=== PATIENT | male | born 1970 | race Caucasian/White ===

== ENCOUNTER 2018-02-01 19:52 | Emergency (ER) | payer SELFPAY ==
[2018-02-01] MEDS ORDERED: Ketorolac INJ* 60 MG/2 ML VIAL IM ONE (21:03)
[2018-02-01] MEDS ORDERED: oxyCODONE/Acetamin 5/325 MG* TAB PO ONE (21:03)
[2018-02-01] MEDS ORDERED: Dexamethasone IV* 4 MG/ML 1 ML (4 MG) IV SLOW PU ONE (21:03)
[2018-02-01] MEDS ORDERED: Dexamethasone IV* 4 MG/ML 1 ML (4 MG) IM ONE (21:07)
--- NOTE | 2018-02-01 21:11 | ED ---
Lower Extremity - HPI Summary HPI Summary: A 47 y/o male presents to ED c/o severe pain from his left glute radiating down his left leg to his ankle/foot. The pain is reaching 10/10 in severity. As per triage, "Pt c/o LLE pain for approximately 2 months. States pain starts at the top of his left buttocks and radiates to his LLE. States he's been seeing his PCP and has MRI scheduled for tomorrow. Pt has been taking Flexiril with minimal to no effects". According to the patient, he has been exhibiting this lower extremity pain for the past 2 months, however, it has been getting worse and worse. Patient denies any heavy lifting, recent trauma, expect he did tear his muscle of his glute (left) when he was hanging by a tree by his legs. When he came down, he hurt himself. The patient has a scheduled MRI of the area tomorrow, however the pain is unbearable to the point where he cannot sit or lay down. He has to stand up, otherwise he experiencing severe pain, "it hurts like hell". The patient has been seen by an MD for his symptoms and was put on several medications including muscle relaxers (did not help), pain medications and anti-inflammatorily (helped a lot). He stated that when he was given the medications, he felt like "a million bucks" and his pain was subsided, however, he could not sleep. During the process of taking him off the medications, his pain gradually came back, getting more severe by the day. He denies any urinary or bowel dysfunction. PMHx of hand surgery. SHx of no smoking, occasional ETOH, no recreational drugs. Patient just took a muscle relaxer. - History of Current Complaint Chief Complaint: EDExtremityLower Stated Complaint: SCIATICA PAIN LEFT SIDE Time Seen by Provider: 02/01/18 20:56 Hx Obtained From: Patient, Family/Rust Proofer - Mechanism Of Injury: Fall From Height Of: - Tree (previous) Onset of Pain: Post Accident Onset/Duration: Weeks Severity Initially: Severe Severity Currently: Severe Pain Intensity: 10 Pain Scale Used: 0-10 Numeric Timing: Constant Location: Is Discrete @ - left gluteal area radiating down left leg Character Of Pain: Unable To Describe Associated Signs And Symptoms: Positive: Negative Aggravating Factor(s): Standing, Movement, Weight Bearing Alleviating Factor(s): Other - Pain medications/steroids - Allergies/Home Medications Allergies/Adverse Reactions: Allergies Allergy/AdvReac Type Severity Reaction Status Date / Time No Known Allergies Allergy Verified 02/01/18 20:07 PMH/Surg Hx/FS Hx/Imm Hx Endocrine/Hematology History: Denies: Hx Diabetes Cardiovascular History: Denies: Hx Hypertension, Hx Pacemaker/ICD History: Denies: Hx Renal Disease Musculoskeletal History: Denies: Hx Scoliosis Sensory History: Denies: Hx Hearing Aid Neurological History: Denies: Hx Headaches, Other Neuro Impairments/Disorders Psychiatric History: Denies: Hx Panic Disorder - Surgical History Surgery Procedure, Year, and Place: ROTATOR CUFF RIGHT SHOULDER Infectious Disease History: No Infectious Disease History: Denies: Traveled Outside the [place] in Last 30 Days - Family History Known Family History: Negative: Hypertension, Diabetes - Social History Alcohol Use: Occasionally Substance Use Type: Reports: None Smoking Status (MU): Never Smoked Tobacco Review of Systems Negative: Fever Positive: Other - POSITIVE: Myalgia of the left gluteal area radiating down left leg to ankle/foot All Other Systems Reviewed And Are Negative: Yes Physical Exam - Summary Physical Exam Summary: VITAL SIGNS: Reviewed. GENERAL: Patient is a well-developed and nourished male who is standing/leaning over stretcher. Patient is not in any acute respiratory distress. Straight leg test is positive 90 degrees. HEAD AND FACE: No signs of trauma. No ecchymosis, hematomas or skull depressions. No sinus tenderness. EYES: PERRLA, EOMI x 2, No injected conjunctiva, no nystagmus. EARS: Hearing grossly intact. Ear canals and tympanic membranes are within normal limits. MOUTH: Oropharynx within normal limits. NECK: Supple, trachea is midline, no adenopathy, no JVD, no carotid bruit, no c- spine tenderness, neck with full ROM. CHEST: Symmetric, no tenderness at palpation LUNGS: Clear to auscultation bilaterally. No wheezing or crackles. CVS: Regular rate and rhythm, S1 and S2 present, no murmurs or gallops appreciated. ABDOMEN: Soft, non-tender. No signs of distention. No rebound no guarding, and no masses palpated. Bowel sounds are normal. EXTREMITIES: No edema, no cyanosis or clubbing. Tenderness in left gluteal radiating down Left lower extremity. Patient doesn't have weakness, good pulses , neurovascular exam is intact. NEURO: Alert and oriented x 3. No acute neurological deficits. Speech is normal and follows commands. SKIN: Dry and warm Triage Information Reviewed: Yes Vital Signs On Initial Exam: Initial Vitals Temp Pulse Resp BP Pulse Ox 98.3 F 98 16 132/76 97 02/01/18 20:03 02/01/18 20:03 02/01/18 20:03 02/01/18 20:03 02/01/18 20:03 Vital Signs Reviewed: Yes Diagnostics - Vital Signs Vital Signs Temp Pulse Resp BP Pulse Ox 02/01/18 20:03 98.3 F 98 16 132/76 97 - Laboratory Lab Statement: Any lab studies that have been ordered have been reviewed, and results considered in the medical decision making process. Lower Extremity Course/Dx - Course Assessment/Plan: This patient is a 47-year-old male who presents to the emergency department with chief complaint of pain in the left gluteus with radiation to the left lower extremity. The patient has been having this pain for approximately 2 months. He is is scheduled to have a MRI tomorrow morning however the patients pain has increased therefore he decided to come tonight to the ER and Get some pain relief. Patient denies any urinary or fecal dysfunction. He denies any weakness or tingling in the left lower extremity. In the physical exam he declined rectal exam. But he has good strength in the left lower extremity, he has good sensation and he is neurovascularly intact. He has positive tenderness in the left gluteus. Extremities his positive approximate 45. In the ED course the patient was given Decadron, Toradol and Percocet. I did not give her a muscle relaxant since the patient had taken 20 minutes before he got to the emergency department Flexeril. Since the patient is ambulatory, the patient is feeling better the patient will be discharged home with follow-up with primary care physician and he was requested to keep the MRI appointment. He understands and agrees. He ambulated out of the ED. - Diagnoses Differential Diagnosis/HQI/PQRI: Positive: Bursitis, Sprain, Strain Provider Diagnoses: Sciatic pain Discharge - Sign-Out/Discharge Documenting (check all that apply): Patient Departure - DISCHARGE - Discharge Plan Condition: Stable Disposition: HOME Prescriptions: methylPREDNISolone [Medrol Dosepak 4 MG*] 0 mg PO .SEE BRANDI INSTRUCTION #1 brandi oxyCODONE/Acetamin 5/325 MG* [Percocet 5/325 TAB*] 1 tab PO Q6H PRN #12 tab MDD 4 PRN Reason: Pain Patient Education Materials: Sciatica (ED) Referrals: Jorge L Cross MD [Primary Care Provider] - 3 Days Additional Instructions: FOLLOW UP WITH PRIMARY CARE PHYSICIAN IN 2-3 DAYS FOLLOW UP WITH YOUR PRIMARY CARE PROVIDER WITHIN ONE WEEK FOR HIGH BLOOD PRESSURE NOTED TODAY. RETURN TO ED FOR ANY NEW OR WORSENING SYMPTOMS. - Billing Disposition and Condition Condition: STABLE Disposition: Home - Attestation Statements Document Initiated by Rejiibelvis: Yes Documenting Scribe: Adolfo Dorantes Provider For Whom Lena is Documenting (Include Credential): Beto Valdivia MD Scribe Attestation: Adolfo Dutton, scribed for Beto Valdivia MD on 02/01/18 at 2123. Scribe Documentation Reviewed: Yes Provider Attestation: The documentation as recorded by the Adolfo benitez accurately reflects the service I personally performed and the decisions made by , Beto Valdivia MD
[2018-02-01 21:28] VITALS: BP 143/78
== END 2018-02-01 21:27 | disposition home or self-care (01) ==
LOC: ED 19:52
DX: M54.30 Sciatica, unspecified side (principal)
CPT/HCPCS: 96372; 99282; A9270-GY; J1100; J1885

== ENCOUNTER 2018-05-09 00:30 | Emergency (ER) | payer OTHER ==
[2018-05-09] MEDS ORDERED: Dexamethasone IV* 4 MG/ML 1 ML (4 MG) IM ONE (00:47)
[2018-05-09] MEDS ORDERED: Ketorolac INJ* 30 MG/ML 1 ML VIAL IM ONE (00:47)
[2018-05-09] MEDS ORDERED: Lidocaine PATCH 5%* 1 PATCH TRANSDERM ONE (00:48)
--- NOTE | 2018-05-09 01:04 | ED ---
Back Pain - HPI Summary HPI Summary: 47-year-old male presents with bilateral leg pain for the past couple months. He states is greatest in the right than the left and radiates posterior aspect of leg to the knees. He denies any edema. He states that radiates to his back. No fevers. No loss of bowel or bladder. No saddle anesthesias. No weakness. Stable family. Pain is worse when he lays down. No numbness or tingling. Had an MRI for the same pain a couple months. is following up with the pain clinic for injections. followed up with neurosurgery and told no surgery needed. took a muscle relaxer and advil with minimal relief prior to coming. No new injury. No abdominal pain. No urinary symptoms. - History of Current Complaint Chief Complaint: EDExtremityLower Stated Complaint: LEG PAIN Time Seen by Provider: 05/09/18 00:38 Pain Intensity: 8 - Allergies/Home Medications Allergies/Adverse Reactions: Allergies Allergy/AdvReac Type Severity Reaction Status Date / Time No Known Allergies Allergy Verified 02/01/18 20:07 Home Medications: Home Medications Cyclobenzaprine HCl 10 mg PO TID PRN 05/09/18 [History Confirmed 05/09/18] PMH/Surg Hx/FS Hx/Imm Hx Endocrine/Hematology History: Denies: Hx Diabetes Cardiovascular History: Denies: Hx Hypertension, Hx Pacemaker/ICD History: Denies: Hx Renal Disease Musculoskeletal History: Denies: Hx Scoliosis Sensory History: Denies: Hx Hearing Aid Neurological History: Denies: Hx Headaches, Other Neuro Impairments/Disorders Psychiatric History: Denies: Hx Panic Disorder - Surgical History Surgery Procedure, Year, and Place: ROTATOR CUFF RIGHT SHOULDER Infectious Disease History: No Infectious Disease History: Denies: Traveled Outside the [place] in Last 30 Days - Family History Known Family History: Negative: Hypertension, Diabetes - Social History Alcohol Use: Occasionally Substance Use Type: Reports: None Smoking Status (MU): Never Smoked Tobacco Review of Systems Negative: Fever Negative: Chest Pain Negative: Shortness Of Breath Positive: Myalgia - bilateral leg pain All Other Systems Reviewed And Are Negative: Yes Physical Exam Triage Information Reviewed: Yes Vital Signs On Initial Exam: Initial Vitals Temp Pulse Resp BP Pulse Ox 97.0 F 115 20 121/82 98 05/09/18 00:32 05/09/18 00:32 05/09/18 00:32 05/09/18 00:32 05/09/18 00:32 Vital Signs Reviewed: Yes Appearance: Positive: Well-Appearing Skin: Positive: Warm, Dry Head/Face: Positive: Normal Head/Face Inspection Eyes: Positive: Normal, Conjunctiva Clear ENT: Positive: Pharynx normal Respiratory/Lung Sounds: Positive: Clear to Auscultation, Breath Sounds Present Cardiovascular: Positive: Normal, RRR Musculoskeletal: Positive: Strength/ROM Intact - legs, Other - tenderness right SI joint, good pulses, sensation grossly intact, Neurological: Positive: Reflexes Intact - patella, Normal Gait, Babinski Bilateral - normal Psychiatric: Positive: Normal Diagnostics - Vital Signs Vital Signs Temp Pulse Resp BP Pulse Ox 05/09/18 00:32 97.0 F 115 20 121/82 98 - Laboratory Lab Statement: Any lab studies that have been ordered have been reviewed, and results considered in the medical decision making process. Re-Evaluation - Re-Evaluation First Eval Re-Evaluation Time: 01:33 Change: Improved Comment: pain is better but not gone. patient drove her so can not give anything more. Back Pain Course/Dx - Course Course Of Treatment: 47-year-old male presents with bilateral leg pain for the past couple months. He states is greatest in the right than the left and radiates posterior aspect of leg to the knees. He denies any edema. He states that radiates to his back. No fevers. No loss of bowel or bladder. No saddle anesthesias. No weakness. Stable family. Pain is worse when he lays down. No numbness or tingling. Had an MRI for the same pain a couple months. is following up with the pain clinic for injections. followed up with neurosurgery and told no surgery needed. took a muscle relaxer and advil with minimal relief prior to coming. No new injury. No abdominal pain. No urinary symptoms. On exam has tenderness lower back over SI joint. Positive straight leg raise. Neurovascularly intact. Will not get imaging has no new injury and just MRI a couple months ago with the same pain. Gave Decadron and Toradol and feeling better although pain not completely resolved. will prescribe short course of pain medication and medrol. told to follow up with primary. patient understand and agrees with plan. - Diagnoses Differential Diagnosis/HQI/PQRI: Positive: Herniated Disc, Strain, Other - scaticia Provider Diagnoses: Back pain Discharge - Sign-Out/Discharge Documenting (check all that apply): Patient Departure - Discharge Plan Condition: Good Disposition: HOME Prescriptions: HYDROcodone/ACETAMIN 5-325 MG* [[place] 5-325 TAB*] 1 tab PO Q6H PRN #12 tab MDD 4 PRN Reason: Pain methylPREDNISolone [Medrol Dosepak 4 MG*] 4 mg PO .SEE BRANDI INSTRUCTION #1 packet Patient Education Materials: Back Pain (ED) Referrals: Jorge L Cross MD [Primary Care Provider] - Additional Instructions: Follow directions on package for Medrol pack Apply lidocaine patches to area for up to 12 hours in one 24 hour period Use ibuprofen or Tylenol for pain every 6 hours, use norco every 6 hours as needed for break through pain ice/heat area, move as much as possible Follow up with primary within 5 days Return to ED if develop any new or worsening symptoms - Billing Disposition and Condition Condition: GOOD Disposition: Home
[2018-05-09 01:40] VITALS: BP 131/87
[2018-05-09] MEDS ORDERED: Lidocaine Patch REMOVE* 1 NOTE MISC SCH (21:00)
== END 2018-05-09 01:39 | disposition home or self-care (01) ==
LOC: ED 00:30
DX: M54.9 Dorsalgia, unspecified (principal); M79.605 Pain in left leg; M79.604 Pain in right leg
CPT/HCPCS: 96372; 99282; A9270-GY; J1100; J1885

== ENCOUNTER 2019-07-14 19:20 | Emergency (ER) | payer SELFPAY ==
[2019-07-14] MEDS ORDERED: Diazepam TAB(*) 5 MG PO ONE (20:17)
--- NOTE | 2019-07-14 20:21 | ED ---
Back Pain - HPI Summary HPI Summary: 48-year-old male presents to the emergency department today complaining of 8 out of 10 low back pain which began approximately 4 days ago. Patient denies trauma. Patient has no radicular pain is neurovascularly intact. Patient has a history of low back pain. Patient was seen by his primary care physician yesterday and given prescription for ibuprofen, prednisone, Flexeril for his back pain which she states is not helping. Patient denies recent fevers, incontinence, saddle paresthesia. Patient is able to ambulate and states his pain is made worse with rest. Patient otherwise feels well and denies fever, chest pain, abdominal pain with urination, nausea, vomiting, diarrhea. - History of Current Complaint Chief Complaint: EDBackInjuryPain Stated Complaint: BACK AND LEG PAIN PER PT Time Seen by Provider: 07/14/19 19:47 Hx Obtained From: Patient Onset/Duration: Gradual Onset Onset/Duration: Started Days Ago Timing: Constant Severity Initially: Severe Severity Currently: Severe Pain Intensity: 9 Pain Scale Used: 0-10 Numeric Character: Aching Alleviating Symptom(s): Position Associated Signs And Symptoms: Negative: Swelling, Redness, Bruising, Fever, Weakness, Numbness, Bladder Incontinence, Bowel Incontinence - Allergies/Home Medications Allergies/Adverse Reactions: Allergies Allergy/AdvReac Type Severity Reaction Status Date / Time No Known Allergies Allergy Verified 02/01/18 20:07 Home Medications: Home Medications Lidocaine PATCH 5%* [Lidoderm 5% Patch*] 1 patch TRANSDERM DAILY #7 patch [Rx] Diazepam TAB(*) [[place] TAB(*)] 10 mg PO Q8H PRN #12 tab MDD 4 07/14/19 [Rx] Flexeril 10 MG TAB* 07/14/19 [History] predniSONE 50 mg TAB 07/14/19 [History] PMH/Surg Hx/FS Hx/Imm Hx Endocrine/Hematology History: Denies: Hx Diabetes Cardiovascular History: Denies: Hx Hypertension, Hx Pacemaker/ICD History: Denies: Hx Renal Disease Musculoskeletal History: Denies: Hx Scoliosis Sensory History: Denies: Hx Hearing Aid Neurological History: Denies: Hx Headaches, Other Neuro Impairments/Disorders Psychiatric History: Denies: Hx Panic Disorder - Surgical History Surgery Procedure, Year, and Place: ROTATOR CUFF RIGHT SHOULDER - Immunization History Immunizations Up to Date: Unable to Obtain/Confirm Infectious Disease History: No Infectious Disease History: Denies: Traveled Outside the [place] in Last 30 Days - Family History Known Family History: Negative: Hypertension, Diabetes - Social History Alcohol Use: Occasionally Substance Use Type: Reports: None Smoking Status (MU): Never Smoked Tobacco Review of Systems Constitutional: Negative Eyes: Negative ENT: Negative Cardiovascular: Negative Respiratory: Negative Gastrointestinal: Negative Genitourinary: Negative Positive: Arthralgia, Decreased ROM Skin: Negative Neurological/Mental Status: Negative Psychological: Normal All Other Systems Reviewed And Are Negative: Yes Physical Exam - Summary Physical Exam Summary: Patient is in no acute distress. Patient is ambulatory. Patient has full range of motion of the spine however he moves with pain patient has no tenderness in the midline spinous palpation. No evidence of ecchymosis or edema. Patient has pain with palpation of the right paraspinal muscles of the lumbar spine. Triage Information Reviewed: Yes Vital Signs On Initial Exam: Initial Vitals Temp Pulse Resp BP Pulse Ox 97.8 F 106 20 147/86 96 07/14/19 19:31 07/14/19 19:31 07/14/19 19:31 07/14/19 19:31 07/14/19 19:31 Vital Signs Reviewed: Yes Appearance: Positive: Well-Appearing, No Pain Distress, Well-Nourished Skin: Positive: Warm, Skin Color Reflects Adequate Perfusion Eyes: Positive: EOMI, MADHU ENT: Positive: Hearing grossly normal Respiratory/Lung Sounds: Positive: Clear to Auscultation, Breath Sounds Present Cardiovascular: Positive: RRR, S1, S2 Abdomen Description: Positive: Soft Bowel Sounds: Positive: Present Musculoskeletal: Positive: Strength/ROM Intact Neurological: Positive: Sensory/Motor Intact, Alert, Oriented to Person Place, Time, Facial Symmetry, Speech Normal. Negative: Normal Gait - Antalgic gait Psychiatric: Positive: Normal, Affect/Mood Appropriate AVPU Assessment: Alert Procedures - Sedation Patient Received Moderate/Deep Sedation with Procedure: No Diagnostics - Vital Signs Vital Signs Temp Pulse Resp BP Pulse Ox 07/14/19 19:31 97.8 F 106 20 147/86 96 - Laboratory Lab Statement: Any lab studies that have been ordered have been reviewed, and results considered in the medical decision making process. Back Pain Course/Dx - Course Course Of Treatment: Patient was evaluated in the emergency department if her back pain. Vitals noted. No evidence of cauda equina, vertebral fracture, epidural abscess. Patient's symptoms are likely due to mechanical back pain. Patient was given diazepam in the emergency department. Patient was given a prescription for diazepam due to failure of outpatient therapy with steroids and ibuprofen. Patient discharged outpatient follow-up with PCP. - Diagnoses Differential Diagnosis/HQI/PQRI: Positive: Cauda Equina Syndrome, Compressive Cord Syndrome, Fracture, Strain, Sprain Provider Diagnoses: Back pain Discharge ED - Sign-Out/Discharge Documenting (check all that apply): Patient Departure - Discharge Plan Condition: Stable Disposition: HOME Prescriptions: Diazepam TAB(*) [Valium TAB(*)] 10 mg PO Q8H PRN #12 tab MDD 4 PRN Reason: Pain - Severe Patient Education Materials: Low Back Strain (ED) Referrals: Jorge L Cross MD [Primary Care Provider] - 3 Days Additional Instructions: You were seen in the emergency department today for back pain. Please follow up with your primary care physician in 5 days for further evaluation and management of your injury. Please take for your symptoms: * Ibuprofen 800mg every 8 hours with meals for pain. (Anti Inflammatory) * Diazepam every 8 hours as needed for pain unable to be controlled by ibuprofen. Most people with an episode of low back pain do not have a serious medical problem, and can try simple treatments such as: ?Staying active The best thing you can do is to stay as active as possible. People with low back pain recover faster if they stay active. If your pain is severe, you might need to rest for a day or 2. But it's important to get back to walking and moving as soon as possible. While you should avoid heavy lifting and sports while your back hurts, try to keep doing your normal daily activities. ?Heat Some people find that it helps to use a heating pad or heated wrap. Be careful to avoid high heat settings to prevent skin [place]. Spinal manipulation This is when a chiropractor, physical therapist, or other professional moves or "adjusts" the joints of your back. If you want to try this, talk to your doctor or nurse first. Acupuncture This is when someone who knows traditional [place] medicine inserts tiny needles into your body to block pain signals. Massage While back pain usually goes away within a few weeks, some people do continue to have pain for longer. In this case, additional treatments might include: ?Self care This involves being aware of your pain. While you should rest when you need to, it's important to stay active as much as you can. Things like applying heat and doing gentle stretches can help you feel better, too. ?Physical therapy A physical therapist is an exercise expert who can teach you stretches and movements to help strengthen your muscles. The goal is to relieve pain but also help you get back to your normal activities. Exercises you can try include walking, swimming, or using an exercise bike. Some people also find that Isra Chi or yoga can help with their back pain. Finding activities you enjoy can help you stay active. ?Reducing stress Some people find that it helps to try something called "mindfulness-based stress reduction." This involves going to a group program to practice relaxation and meditation. If your back pain is making you feel anxious or depressed, talk to your doctor or nurse. There are other treatments that can help with these problems. Only a small number of people end up needing surgery to treat back pain. - Billing Disposition and Condition Condition: STABLE Disposition: Home
[2019-07-14 20:41] VITALS: BP 142/78
== END 2019-07-14 20:41 | disposition home or self-care (01) ==
LOC: ED 19:20
DX: M54.5 Low back pain (principal); Z79.899 Other long term (current) drug therapy
CPT/HCPCS: 99281; A9270-GY